=== PATIENT | female | born 1990 | race Caucasian/White ===

== ENCOUNTER 2021-03-29 18:20 | Emergency (ER) | payer OTHER ==
[2021-03-29 18:28] VITALS: BP 128/79; PULSE 86; TEMP 98.9; BMI 31.7
== END 2021-03-29 19:43 | disposition home or self-care (01) ==
LOC: JER 18:20 → JERFT 18:20
DX: J02.9 Acute pharyngitis, unspecified (principal); J06.9 Acute upper respiratory infection, unspecified; Z11.52 Encounter for screening for COVID-19
CPT/HCPCS: 87880; 99283-25; C9803; U0003; U0005

== ENCOUNTER 2021-05-12 15:33 | Emergency (ER) | payer OTHER ==
[2021-05-12 15:42] VITALS: BP 102/70; PULSE 98; TEMP 98.2; BMI 31.7
[2021-05-12 18:07] LABS: PH,URINE 8.5 (5.0-8.0); URINE APPEARANCE CLEAR; URINE BILIRUBIN NEGATIVE (NEGATIVE); URINE COLOR YELLOW; URINE GLUCOSE (UA) NEGATIVE (NEGATIVE); URINE KETONE TRACE (NEGATIVE); URINE LEUK ESTERASE NEGATIVE (NEGATIVE); URINE NITRITE NEGATIVE (NEGATIVE); URINE PROTEIN NEGATIVE (NEGATIVE)
[2021-05-12 18:10] LABS: BASO % 0.8 % (0-2.0); HEMATOCRIT 37.3 % (32.4-45.2); HEMOGLOBIN 13.2 GM/dL (10.7-15.3); LYMPH % 43.3 % (8-40); MCH 29.6 pg (25.7-33.7); MCHC 35.3 g/dl (32.0-36.0); MEAN CELL VOLUME 83.8 fl (80-96); MEAN PLT VOLUME 8.7 fl (7.5-11.1); MONO % 7.1 % (3.8-10.2); NEUT % 46.8 % (42.8-82.8); PLATELET COUNT 311 10^3/uL (134-434); RBC 4.45 M/mm3 (3.60-5.2); RDW 13.1 % (11.6-15.6); WHITE BLOOD COUNT 9.3 K/mm3 (4.0-10.0)
[2021-05-12 18:23] LABS: CHLORIDE 108 mmol/L (98-107); SODIUM 140 mmol/L (136-145)
[2021-05-12 18:26] LABS: ALBUMIN 3.9 g/dl (3.4-5.0); ANION GAP 5 MMOL/L (8-16); BLOOD UREA NITROGEN 16.2 mg/dL (7-18); CO2 27 mmol/L (21-32); GLUCOSE,RANDOM 80 mg/dL (74-106)
[2021-05-12] MEDS ORDERED: IBUPROFEN 600 MG TABLET (FP) PO ONE ×2 (18:26→18:27)
[2021-05-12 18:29] LABS: CREATININE 0.8 mg/dL (0.55-1.3); SGOT/AST 16 U/L (15-37); SGPT/ALT 28 U/L (13-61)
[2021-05-12 18:30] LABS: TOT PROT 7.6 g/dl (6.4-8.2)
[2021-05-12 18:31] LABS: BILIRUBIN,TOTAL 0.2 mg/dL (0.2-1)
[2021-05-12 18:32] LABS: ALK PHOS 55 U/L (45-117)
== END 2021-05-12 21:02 | disposition home or self-care (01) ==
LOC: JERFT 15:33
DX: R07.9 Chest pain, unspecified (principal)
CPT/HCPCS: 36415; 71046-TC-FY; 80053; 81003; 84484; 84703; 85025; 85379; 87086; 93005; 93010; 99285-25

== ENCOUNTER 2021-07-04 15:44 | Emergency (ER) | payer OTHER ==
[2021-07-04 16:07] VITALS: BP 113/74; PULSE 81; TEMP 98.4; BMI 33.7
[2021-07-04 17:44] LABS: URINE APPEARANCE CLEAR; URINE BILIRUBIN NEGATIVE (NEGATIVE); URINE COLOR YELLOW; URINE GLUCOSE (UA) NEGATIVE (NEGATIVE); URINE KETONE NEGATIVE (NEGATIVE); URINE LEUK ESTERASE NEGATIVE (NEGATIVE); URINE NITRITE NEGATIVE (NEGATIVE); URINE PROTEIN NEGATIVE (NEGATIVE); URINE UROBILINOGEN 0.2 mg/dL (0.2-1.0)
[2021-07-04 18:08] LABS: BASO % 0.9 % (0-2.0); EOS % 2.2 % (0-4.5); HEMATOCRIT 36.6 % (32.4-45.2); HEMOGLOBIN 12.6 GM/dL (10.7-15.3); LYMPH % 40.6 % (8-40); MCHC 34.5 g/dl (32.0-36.0); MEAN PLT VOLUME 8.6 fl (7.5-11.1); MONO % 5.4 % (3.8-10.2); NEUT % 50.9 % (42.8-82.8); PLATELET COUNT 307 10^3/uL (134-434); RBC 4.36 M/mm3 (3.60-5.2); WHITE BLOOD COUNT 8.4 K/mm3 (4.0-10.0)
[2021-07-04 18:24] LABS: CHLORIDE 108 mmol/L (98-107); SODIUM 140 mmol/L (136-145)
[2021-07-04 18:26] LABS: CALCIUM 8.7 mg/dL (8.5-10.1)
[2021-07-04 18:27] LABS: ALBUMIN 3.9 g/dl (3.4-5.0); ANION GAP 7 MMOL/L (8-16); CO2 25 mmol/L (21-32); GLUCOSE,RANDOM 111 mg/dL (74-106)
[2021-07-04 18:30] LABS: CREATININE 0.7 mg/dL (0.55-1.3); SGOT/AST 22 U/L (15-37); SGPT/ALT 25 U/L (13-61)
[2021-07-04 18:32] LABS: BILIRUBIN,TOTAL 0.4 mg/dL (0.2-1); TOT PROT 7.3 g/dl (6.4-8.2)
[2021-07-04 18:33] LABS: ALK PHOS 49 U/L (45-117)
[2021-07-04] MEDS ORDERED: ACETAMINOPHEN INJECTION 100 ML IVPB ONE (23:02)
[2021-07-04] MEDS ORDERED: ACETAMINOPHEN 1000 MG/100 ML BAG IVPB ONE (23:02)
[2021-07-04] MEDS ORDERED: KETOROLAC TROMETHAMINE 30 MG/1 ML VIAL IM ONE (23:02)
[2021-07-04] MEDS ORDERED: KETOROLAC TROMETHAMINE 30 MG/1 ML VIAL ONE (23:03)
== END 2021-07-04 23:26 | disposition home or self-care (01) ==
LOC: JER 15:44
PROC: 3E0233Z Introduction of Anti-inflammatory into Muscle, Percutaneous Approach (ICD-10-PCS; principal; 2021-07-04)
PROC: 3E033NZ Introduction of Analgesics, Hypnotics, Sedatives into Peripheral Vein, Percutaneous Approach (ICD-10-PCS; 2021-07-04)
DX: R42 Dizziness and giddiness (principal); R10.2 Pelvic and perineal pain
CPT/HCPCS: 36415; 74177-TC; 76830-TC; 80053; 81003; 84702; 85025; 87086; 87491; 87591; 93005; 93010; 99285-25; J0131; Q9967

== ENCOUNTER 2021-11-19 17:24 | Emergency (ER) | payer OTHER ==
[2021-11-19 17:46] VITALS: BP 111/70; PULSE 94; TEMP 98.1; BMI 30.9
[2021-11-19] MEDS ORDERED: ACETAMINOPHEN 500 MG TABLET (FP) PO ONE (19:35)
[2021-11-19] MEDS ORDERED: ACETAMINOPHEN 325 MG TABLET (FP) ONE (19:48)
[2021-11-19] MEDS ORDERED: METOCLOPRAMIDE HCL INJECTION 10 MG/2 ML VIAL IVPB ONE (20:28)
[2021-11-19] MEDS ORDERED: LACTATED RINGERS SOLUTION 1000 ML INFUS.BAG IV ONE (20:28)
[2021-11-19] MEDS ORDERED: METOCLOPRAMIDE HCL INJECTION 10 MG/2 ML VIAL ONE (20:39)
[2021-11-19 21:19] LABS: BASO % 0.6 % (0-2.0); EOS % 2.1 % (0-4.5); HEMATOCRIT 37.9 % (32.4-45.2); HEMOGLOBIN 12.7 GM/dL (10.7-15.3); LYMPH % 42.3 % (8-40); MCH 27.7 pg (25.7-33.7); MCHC 33.4 g/dl (32.0-36.0); MEAN CELL VOLUME 83.1 fl (80-96); MONO % 6.2 % (3.8-10.2); NEUT % 48.8 % (42.8-82.8); PLATELET COUNT 303 10^3/uL (134-434); RBC 4.56 M/mm3 (3.60-5.2); RDW 13.7 % (11.6-15.6); WHITE BLOOD COUNT 9.9 K/mm3 (4.0-10.0)
[2021-11-19 21:45] LABS: BLOOD UREA NITROGEN 15.7 mg/dL (7-18); CALCIUM 9.1 mg/dL (8.5-10.1)
[2021-11-19 21:48] LABS: CREATININE 0.8 mg/dL (0.55-1.3)
[2021-11-19 21:50] LABS: BILIRUBIN,TOTAL 0.2 mg/dL (0.2-1); TOT PROT 7.7 g/dl (6.4-8.2)
== END 2021-11-19 23:19 | disposition home or self-care (01) ==
LOC: JER 17:24
PROC: 3E033GC Introduction of Other Therapeutic Substance into Peripheral Vein, Percutaneous Approach (ICD-10-PCS; principal; 2021-11-19)
DX: R11.2 Nausea with vomiting, unspecified (principal); R10.9 Unspecified abdominal pain
CPT/HCPCS: 0241U-QW; 36415; 76705-TC; 80053; 83690; 84702; 84703; 85025; 99284-25

== ENCOUNTER 2021-11-22 07:32 | Emergency (ER) | payer OTHER ==
[2021-11-22 07:58] VITALS: BMI 32.5
[2021-11-22] MEDS ORDERED: ACETAMINOPHEN 1000 MG/100 ML BAG IVPB ONE (08:23)
[2021-11-22] MEDS ORDERED: ACETAMINOPHEN INJECTION 100 ML IVPB ONE (08:35)
[2021-11-22 08:47] LABS: BASO % 0.5 % (0-2.0); EOS % 1.5 % (0-4.5); HEMATOCRIT 37.9 % (32.4-45.2); HEMOGLOBIN 12.9 GM/dL (10.7-15.3); LYMPH % 35.6 % (8-40); MCH 28.5 pg (25.7-33.7); MEAN CELL VOLUME 83.6 fl (80-96); MONO % 5.9 % (3.8-10.2); NEUT % 56.5 % (42.8-82.8); PLATELET COUNT 277 10^3/uL (134-434); RBC 4.53 M/mm3 (3.60-5.2); WHITE BLOOD COUNT 8.4 K/mm3 (4.0-10.0)
[2021-11-22 09:03] LABS: ACTIVATED PTT 31.1 SECONDS (25.2-36.5); INR 1.03 (0.83-1.09); PROTHROMBIN TIME (PATIENT) 11.8 SEC (9.7-13.0)
[2021-11-22] MEDS ORDERED: SODIUM CHLORIDE 0.9% 1000 ML INFUS.BAG IV ONE (09:04)
[2021-11-22 09:18] LABS: CHLORIDE 109 mmol/L (98-107); SODIUM 132 mmol/L (136-145)
[2021-11-22 09:20] LABS: BLOOD UREA NITROGEN 15.8 mg/dL (7-18); CALCIUM 8.6 mg/dL (8.5-10.1); CO2 24 mmol/L (21-32); GLUCOSE,RANDOM 97 mg/dL (74-106)
[2021-11-22 09:21] LABS: ALBUMIN 3.5 g/dl (3.4-5.0)
[2021-11-22 09:23] LABS: CREATININE 0.9 mg/dL (0.55-1.3)
[2021-11-22 09:25] LABS: BILIRUBIN,TOTAL 0.4 mg/dL (0.2-1); TOT PROT 8.1 g/dl (6.4-8.2)
[2021-11-22 09:26] LABS: ALK PHOS 45 U/L (45-117)
[2021-11-22 09:30] LABS: ANION GAP -1 MMOL/L (8-16); SGOT/AST 102 U/L (15-37); SGPT/ALT 29 U/L (13-61)
[2021-11-22 11:51] LABS: EPI CELLS 26 /uL (0-25.1); HYALINE CASTS 1 /uL (0-3.1); PH,URINE 5.5 (5.0-8.0); URINE APPEARANCE CLEAR; URINE BACTERIA 57 /uL (0-1359); URINE BILIRUBIN NEGATIVE (NEGATIVE); URINE COLOR YELLOW; URINE GLUCOSE (UA) NEGATIVE (NEGATIVE); URINE KETONE NEGATIVE (NEGATIVE); URINE LEUK ESTERASE 1+ (NEGATIVE); URINE NITRITE NEGATIVE (NEGATIVE); URINE PROTEIN NEGATIVE (NEGATIVE); URINE RBC 1749 /uL (0-23.9); URINE UROBILINOGEN 0.2 mg/dL (0.2-1.0); URINE WBC 58 /uL (0-25.8)
[2021-11-22 12:03] LABS: BLOOD UREA NITROGEN 15.4 mg/dL (7-18); CALCIUM 8.8 mg/dL (8.5-10.1); CHLORIDE 110 mmol/L (98-107); CO2 23 mmol/L (21-32); CREATININE 0.8 mg/dL (0.55-1.3); GLUCOSE,RANDOM 94 mg/dL (74-106); SODIUM 141 mmol/L (136-145)
[2021-11-22 12:54] VITALS: BP 121/74; PULSE 78; TEMP 98.5
== END 2021-11-22 12:58 | disposition home or self-care (01) ==
LOC: JER 07:32
PROC: 3E0333Z Introduction of Anti-inflammatory into Peripheral Vein, Percutaneous Approach (ICD-10-PCS; principal; 2021-11-22)
DX: O03.4 Incomplete spontaneous abortion without complication (principal)
CPT/HCPCS: 36415; 76817-TC; 80048; 80053; 81003; 84702; 84703; 85025; 85610; 85730; 86850; 86900; 86901; 87086; 99284-25

== ENCOUNTER 2022-04-10 16:32 | Emergency (ER) | payer OTHER ==
[2022-04-10 16:48] VITALS: BP 133/95; PULSE 85; RESP 18; TEMP 98; BMI 34.3
[2022-04-10 17:36] LABS: BASO % 0.4 % (0-2.0); EOS % 1.2 % (0-4.5); HEMOGLOBIN 12.7 GM/dL (10.7-15.3); LYMPH % 34.5 % (8-40); MCH 28.4 pg (25.7-33.7); MCHC 34.2 g/dl (32.0-36.0); MEAN CELL VOLUME 83.2 fl (80-96); MEAN PLT VOLUME 7.8 fl (7.5-11.1); MONO % 5.1 % (3.8-10.2); NEUT % 58.8 % (42.8-82.8); PH,URINE 5.5 (5.0-8.0); PLATELET COUNT 288 10^3/uL (134-434); RBC 4.45 M/mm3 (3.60-5.2); RDW 13.8 % (11.6-15.6); URINE APPEARANCE CLEAR; URINE BILIRUBIN NEGATIVE (NEGATIVE); URINE COLOR YELLOW; URINE GLUCOSE (UA) NEGATIVE (NEGATIVE); URINE KETONE NEGATIVE (NEGATIVE); URINE LEUK ESTERASE NEGATIVE (NEGATIVE); URINE NITRITE NEGATIVE (NEGATIVE); URINE PROTEIN NEGATIVE (NEGATIVE); URINE UROBILINOGEN 0.2 mg/dL (0.2-1.0); WHITE BLOOD COUNT 13.3 K/mm3 (4.0-10.0)
[2022-04-10 18:07] LABS: CALCIUM 9.2 mg/dL (8.5-10.1)
[2022-04-10 18:08] LABS: BLOOD UREA NITROGEN 15.4 mg/dL (7-18)
[2022-04-10 18:11] LABS: CREATININE 0.8 mg/dL (0.55-1.3)
[2022-04-10 18:12] LABS: BILIRUBIN,TOTAL 0.3 mg/dL (0.2-1); TOT PROT 7.6 g/dl (6.4-8.2)
== END 2022-04-10 20:39 | disposition home or self-care (01) ==
LOC: JER 16:32
DX: O26.891 Other specified pregnancy related conditions, first trimester (principal); Z3A.01 Less than 8 weeks gestation of pregnancy
CPT/HCPCS: 36415; 76817-TC; 80053; 81003; 84702; 85025; 86850; 86900; 86901; 87086; 99284-25

== ENCOUNTER 2022-04-15 18:38 | Emergency (ER) | payer OTHER ==
[2022-04-15 19:12] VITALS: BMI 34.3
[2022-04-15] MEDS ORDERED: ACETAMINOPHEN 325 MG TABLET (FP) PO ONE (22:01)
[2022-04-15 22:41] LABS: BASO % 1.2 % (0-2.0); EOS % 1.4 % (0-4.5); HEMATOCRIT 36.9 % (32.4-45.2); HEMOGLOBIN 12.7 GM/dL (10.7-15.3); LYMPH % 37.1 % (8-40); MCH 28.7 pg (25.7-33.7); MCHC 34.3 g/dl (32.0-36.0); MEAN CELL VOLUME 83.6 fl (80-96); MEAN PLT VOLUME 8.1 fl (7.5-11.1); MONO % 5.5 % (3.8-10.2); NEUT % 54.8 % (42.8-82.8); PLATELET COUNT 273 10^3/uL (134-434); RBC 4.41 M/mm3 (3.60-5.2); RDW 14.1 % (11.6-15.6); WHITE BLOOD COUNT 11.9 K/mm3 (4.0-10.0)
[2022-04-15 22:43] LABS: EPI CELLS 16 /uL (0-25.1); HYALINE CASTS 0 /uL (0-3.1); PH,URINE 6.5 (5.0-8.0); URINE APPEARANCE CLEAR; URINE BACTERIA 312 /uL (0-1359); URINE BILIRUBIN NEGATIVE (NEGATIVE); URINE COLOR YELLOW; URINE GLUCOSE (UA) NEGATIVE (NEGATIVE); URINE KETONE NEGATIVE (NEGATIVE); URINE LEUK ESTERASE NEGATIVE (NEGATIVE); URINE NITRITE NEGATIVE (NEGATIVE); URINE PROTEIN NEGATIVE (NEGATIVE); URINE RBC 12 /uL (0-23.9); URINE UROBILINOGEN 0.2 mg/dL (0.2-1.0); URINE WBC 3 /uL (0-25.8)
[2022-04-15] MEDS ORDERED: ACETAMINOPHEN 325 MG TABLET (FP) ONE (22:52)
[2022-04-15 23:12] LABS: ALBUMIN 3.8 g/dl (3.4-5.0); BLOOD UREA NITROGEN 14.9 mg/dL (7-18); CALCIUM 9.1 mg/dL (8.5-10.1)
[2022-04-15 23:15] LABS: CREATININE 0.7 mg/dL (0.55-1.3)
[2022-04-15 23:17] LABS: BILIRUBIN,TOTAL 0.3 mg/dL (0.2-1); TOT PROT 7.3 g/dl (6.4-8.2)
[2022-04-16 01:53] VITALS: BP 119/72; PULSE 89; RESP 18; TEMP 98.6
== END 2022-04-16 03:02 | disposition home or self-care (01) ==
LOC: JER 18:38
DX: O20.0 Threatened abortion (principal)
CPT/HCPCS: 36415; 76817-TC; 80053; 81003; 83690; 84702; 85025; 87086; 99284-25

== ENCOUNTER 2023-12-18 08:14 | Emergency (ER) | payer OTHER ==
[2023-12-18 08:24] VITALS: BP 119/74; PULSE 88; RESP 20; TEMP 98.3; BMI 34.3
[2023-12-18] MEDS ORDERED: METOCLOPRAMIDE HCL 10 MG TABLET (FP) PO ONE (09:17)
[2023-12-18] MEDS ORDERED: KETOROLAC TROMETHAMINE 10 MG TABLET PO ONE (09:17)
[2023-12-18] MEDS: METOCLOPRAMIDE HCL 10 MG TABLET (FP) PO ONE (09:31)
[2023-12-18] MEDS: KETOROLAC TROMETHAMINE 10 MG TABLET PO ONE (09:31)
[2023-12-18 09:36] LABS: BASO % 0.6 % (0-2.0); HEMATOCRIT 35.9 % (32.4-45.2); LYMPH % 45.7 % (8-40); MCHC 33.4 g/dl (32.0-36.0); MEAN CELL VOLUME 77.8 fl (80-96); MEAN PLT VOLUME 8.1 fl (7.5-11.1); MONO % 6.7 % (3.8-10.2); PLATELET COUNT 264 10^3/uL (134-434); RBC 4.61 M/mm3 (3.60-5.2); RDW 15.2 % (11.6-15.6); WHITE BLOOD COUNT 6.1 K/mm3 (4.0-10.0)
[2023-12-18 09:50] LABS: POTASSIUM 3.9 mmol/L (3.5-5.1)
[2023-12-18 09:52] LABS: CALCIUM 8.9 mg/dL (8.5-10.1)
[2023-12-18 09:53] LABS: ALBUMIN 3.8 g/dl (3.4-5.0); MAGNESIUM 2.1 mg/dL (1.8-2.4)
[2023-12-18 09:56] LABS: CREATININE 0.9 mg/dL (0.55-1.3); PHOSPHOROUS 3.4 mg/dL (2.5-4.9)
[2023-12-18 09:57] LABS: TOT PROT 7.3 g/dl (6.4-8.2)
[2023-12-18 09:58] LABS: BILIRUBIN,TOTAL 0.6 mg/dL (0.2-1)
== END 2023-12-18 12:01 | disposition home or self-care (01) ==
LOC: JER 08:14
DX: R51.9 Headache, unspecified (principal); Y93.11 Activity, swimming
CPT/HCPCS: 36415; 80053; 83735; 84100; 85025; 99283-25

== ENCOUNTER 2024-03-08 22:04 | Emergency (ER) | payer OTHER ==
[2024-03-08 22:12] VITALS: BP 143/83; PULSE 90; RESP 18; TEMP 98; BMI 34.1
[2024-03-08] MEDS ORDERED: DIPHTH,PERTUSS(ACELL),TET 0.5 ML DISP.SYRIN IM ONE (22:49)
[2024-03-08] MEDS ORDERED: ACETAMINOPHEN 500 MG TABLET (FP) ONE (22:49)
[2024-03-08] MEDS: ACETAMINOPHEN 500 MG TABLET (FP) PO ONE (22:59)
[2024-03-08] MEDS: DIPHTH,PERTUSS(ACELL),TET 0.5 ML DISP.SYRIN IM ONE (23:00)
== END 2024-03-08 23:24 | disposition home or self-care (01) ==
LOC: JER 22:04
PROC: 3E0234Z Introduction of Serum, Toxoid and Vaccine into Muscle, Percutaneous Approach (ICD-10-PCS; principal; 2024-03-08)
DX: S01.21XA Laceration without foreign body of nose, initial encounter (principal); W22.8XXA Striking against or struck by other objects, initial encounter; Z23 Encounter for immunization
CPT/HCPCS: 90471; 90715; 99284-25

== ENCOUNTER 2024-03-11 17:12 | Emergency (ER) | payer OTHER ==
[2024-03-11 17:30] VITALS: BP 123/82; PULSE 74; RESP 20; TEMP 98.1; BMI 34.1
== END 2024-03-11 21:21 | disposition home or self-care (01) ==
LOC: JERFT 17:12
DX: S00.83XA Contusion of other part of head, initial encounter (principal); X58.XXXA Exposure to other specified factors, initial encounter
CPT/HCPCS: 70450-TC; 99284-25

== ENCOUNTER 2024-09-01 14:24 | Emergency (ER) | payer OTHER, BC ==
[2024-09-01 15:14] VITALS: TEMP 99; BMI 36.6
[2024-09-01] MEDS ORDERED: LIDOCAINE 5% TOPICAL PATCH ONE (15:25)
[2024-09-01] MEDS ORDERED: IBUPROFEN 600 MG TABLET (FP) PO ONE (15:25)
[2024-09-01] MEDS: LIDOCAINE 5% TOPICAL PATCH TP ONE (15:33)
[2024-09-01] MEDS: IBUPROFEN 600 MG TABLET (FP) PO ONE (15:34)
[2024-09-01 15:47] LABS: EPI CELLS 7 /uL (0-25.1); HYALINE CASTS 0 /uL (0-3.1); URINE APPEARANCE CLEAR; URINE BACTERIA 13 /uL (0-1359); URINE BILIRUBIN NEGATIVE (NEGATIVE); URINE COLOR YELLOW; URINE GLUCOSE (UA) NEGATIVE (NEGATIVE); URINE KETONE NEGATIVE (NEGATIVE); URINE LEUK ESTERASE NEGATIVE (NEGATIVE); URINE NITRITE NEGATIVE (NEGATIVE); URINE PROTEIN NEGATIVE (NEGATIVE); URINE RBC 11 /uL (0-23.9); URINE UROBILINOGEN 0.2 mg/dL (0.2-1.0); URINE WBC 2 /uL (0-25.8)
[2024-09-01 16:54] LABS: HCG,QUALITATIVE URINE Negative
[2024-09-01 17:10] LABS: HIV INTERPRETATION NEGATIVE (NEGATIVE)
[2024-09-01 17:11] LABS: HCV DIAGNOSTIC IN-HOUSE W/RFLX NON-REACTIVE (NONREACTIVE)
[2024-09-01] MEDS ORDERED: ACETAMINOPHEN 500 MG TABLET (FP) ONE (19:35)
[2024-09-01] MEDS: ACETAMINOPHEN 500 MG TABLET (FP) PO ONE (19:38)
[2024-09-01 20:28] VITALS: BP 132/78; PULSE 80; RESP 16
[2024-09-01] MEDS ORDERED: LIDOCAINE PATCH REMOVAL MC SCH (22:00)
== END 2024-09-01 20:28 | disposition home or self-care (01) ==
LOC: JERFT 14:24
DX: S16.1XXA Strain of muscle, fascia and tendon at neck level, initial encounter (principal); R51.9 Headache, unspecified; H93.8X2 Other specified disorders of left ear; V49.40XA Driver injured in collision with unspecified motor vehicles in traffic accident, initial encounter; Y92.410 Unspecified street and highway as the place of occurrence of the external cause
CPT/HCPCS: 36415; 70450-TC; 81003; 84703; 86803; 87389; 99284-25